=== PATIENT | female | born 1980 | race Caucasian/White ===

== ENCOUNTER 2019-06-19 05:52 | Day surgery (SDC) | payer OTHER ==
[~2019-06-19] VITALS: Ht 157.5 cm; Wt 65.8 kg
[~2019-06-19 05:52] MED LIST: AUBA14TA PO; VITA50005 PO
[2019-06-19] MEDS ORDERED: LIDOCAINE 1% MDV 20ML VIAL SQ PRN (06:00)
[2019-06-19 06:32] LABS: HEMATOCRIT 39.5 % (36.0-47.0); HEMOGLOBIN 12.5 g/dl (12.0-15.5); MEAN CORPUSCULAR HEMOGLOBIN 29.5 pg (27.0-33.0); MEAN CORPUSCULAR HGB CONC 31.6 g/dl (32.0-36.5); MEAN CORPUSCULAR VOLUME 93.2 fl (80.0-96.0); PLATELET COUNT, AUTOMATED 243 10^3/uL (150-450); RED BLOOD COUNT 4.24 10^6/uL (4.00-5.40); WHITE BLOOD COUNT 3.7 10^3/uL (4.0-10.0)
[2019-06-19] MEDS ORDERED: LR 1,000 ML IV ONE (07:00)
[2019-06-19] MEDS ORDERED: BUPIVACAINE/EPIN 0.25% 30 ML VIAL As Ordered ONE (07:12)
[2019-06-19] MEDS ORDERED: dexameTHASONE 4 MG/ML 1ML VIAL (J1100) As Ordered ONE (07:13)
[2019-06-19] MEDS ORDERED: ONDANSETRON 4MG/2ML VIAL (J2405) As Ordered ONE (07:13)
[2019-06-19] MEDS ORDERED: ROCURONIUM BROMIDE 50 MG/5 ML VIAL As Ordered ONE (07:13)
[2019-06-19] MEDS ORDERED: propofoL 200 MG/20 ML VIAL As Ordered ONE (07:13)
[2019-06-19] MEDS ORDERED: LIDOCAINE 2% INJ 100 MG/5 ML SDV (FOR ANES.) As Ordered ONE (07:13)
[2019-06-19] MEDS ORDERED: fentaNYL 100 MCG/2 ML INJECTION (J3010) As Ordered ONE ×3 (07:14→09:24)
[2019-06-19] MEDS ORDERED: MIDAZOLAM INJ 2 MG/2 ML VIAL (J2250) As Ordered ONE (07:14)
[2019-06-19] MEDS ORDERED: SUGAMMADEX SODIUM 500 MG/5 ML VIAL (BRIDION) As Ordered ONE (07:51)
[2019-06-19] MEDS ORDERED: ACETAMINOPHEN 1000MG 100ML IV BTL (OFIRMEV) (J0131 PER 10MG) As Ordered ONE (07:51)
[2019-06-19] MEDS ORDERED: KETOROLAC 60 MG/2 ML VIAL (J1885) As Ordered ONE (07:51)
[2019-06-19] MEDS ORDERED: ONDANSETRON 4MG/2ML VIAL (J2405) IV PRN (09:45)
[2019-06-19] MEDS ORDERED: HYDROMORPHONE HCL 0.5 MG/ 0.5 ML SYRINGE (J1170 PER 1) IV PRN (09:45)
[2019-06-19] MEDS ORDERED: fentaNYL 100 MCG/2 ML INJECTION (J3010) IV PRN (09:45)
[2019-06-19] MEDS ORDERED: PERCOCET 5MG/325MG TAB PO PRN (09:45)
[2019-06-19] MEDS ORDERED: LR 1,000 ML IV SCH ×2 (09:45)
[2019-06-19 11:10] VITALS: BP 123/69
--- NOTE | 2019-06-19 11:27 | POST-OPPD ---
Postoperative Procedure Note Date Of Procedure: Jun 19, 2019 PREOPERATIVE DIAGNOSIS: Right ovarian cyst POSTOPERATIVE DIAGNOSIS: Right ovarian endometrioma FINDINGS: Right ovary with endometrioma adhered to right posterior lower uterine segment and uterosacral ligament. Fundal fibroid (3-4cm) PROCEDURE: 1) Laparoscopic right ovarian cystectomy with lysis of adhesions SURGEON: Wendy Mukherjee DO [employer] MARINE: Mode Duque MD ANESTHESIA: General SPECIMENS: right ovarian biopsy ESTIMATED BLOOD LOSS: < 5cc REPLACED: 1700cc LR DRAINS: 400cc Urine COMPLICATIONS: Uterine perforation. Insertion of Mirena IUD was not performed secondary to uterine perforation. POSTOPERATIVE CONDITION: stable Detailed Procedure Note: Indication: Patient is a 38 yo with right ovarian cyst and heavy menstrual bleeding desiring surgical management with cystectomy and insertion of mirena IUD. Findings: Laparoscopic findings: Uterus with anterior fundal fibroid (3-4cm), bilateral fallopian tubes normal appearing. Left ovary normal appearing. Right ovary adhered to posterior left lower uterine segment and uterosacral ligament. Ovarian cyst filled with chocolate appearing fluid consistent with endometrioma. Anterior cul-de-sac without lesion. Posterior cul-de-sac without lesion. Description of procedure: The risks, benefits, indications and alternatives of the procedure were reviewed with the patient and informed written consent was obtained. The patient was taken to the operating room with IV running. She was placed under general anesthesia with endotracheal tube. Arms tucked. Patient placed in lithotomy. The abdomen, vagina and perineum were prepped and draped in the usual sterile fashion. [place] inserted. Sponge stick placed vaginally for uterine manipulation. Small incision made in umbilicus. Veres needle introduced. Saline drop test confirmed intraabdominal placement. Abdomen insufflated with CO2. Five mm trocar introduced under direct visualization. Surveys reviews no bowel injury or bleeding. Two 5mm ports placed left lower abdomen with direct visualization. Findings as above. Cyst ruptured with light manipulation of the ovary. Fluid drained. Due to fundal fibroid, it was difficult to manipulate the uterus with sponge stick. Hulka uterine manipulator was placed vaginally. During sounding of the uterus, the sound perforated to the left posterior of the uterus. Sound was removed without problem and Hulka uterine manipulator was placed without difficulty. Harmonic scalpel used to dissect right ovary off of right posterior uterus and uterosacral ligament. Inspection did not find cyst wall inside dissected ovary. Biopsy was taken off the right ovary where it was adhered to the uterus and the edge of perforated cyst area. Surgical area inspected for hemostasis. Area of perforation hemostatic. Surgiseal placed above the uterus at the exit of the perforation. Abdomen desuflated. Camera and instruments removed from abdomen. Incision sites closed with 4-O monocryl and dermabond. Canchola and Hulka uterine manipulator removed from the vagina. Count correct x 2. Patient was taken out of OR in stable condition. WENDY MUKHERJEE DO Jun 19, 2019 09:55
== END 2019-06-19 11:19 | disposition home or self-care (01) ==
LOC: M SDC 05:52
PROVIDERS: ATTEND Obstetrics & Gynecology
DX: N83.11 Corpus luteum cyst of right ovary (principal); N80.1 Endometriosis of ovary; N99.71 Accidental puncture and laceration of a genitourinary system organ or structure during a genitourinary system procedure; G35 Multiple sclerosis; D64.9 Anemia, unspecified; Z79.899 Other long term (current) drug therapy; Z88.8 Allergy status to other drugs, medicaments and biological substances
CPT/HCPCS: 36415; 58662; 84702; 85027; 86850; 86900; 86901; 88305; J0131; J1100; J1885; J2250; J2405; J3010

== ENCOUNTER → 2019-11-30 | Outpatient (CLI) | payer OTHER | LOC: M LABSMTC 11:44 | PROVIDERS: ATTEND Orthopaedic Surgery | DX: Z03.818 Encounter for observation for suspected exposure to other biological agents ruled out (principal); Z11.59 Encounter for screening for other viral diseases ==